=== PATIENT | female | born 1955 | race African-American/Black ===

== ENCOUNTER 2018-03-16 19:23 | Inpatient (IN) ==
[2018-03-16] MEDS ORDERED: DUONEB (A & A) INH ONE (19:37)
[2018-03-16] MEDS ORDERED: SOLU-MEDROL IV ONE (19:45)
[2018-03-16 20:20] LABS: BASO# 0.17 X1000 (0.0-0.2); BASO% 1.4 % (0.0-0.8); EOS# 0.09 X1000 (0.0-0.7); EOS% 0.8 % (0.0-10.0); HEMATOCRIT 46.8 % (37.0-47.0); HEMOGLOBIN 15.5 g/dL (12.0-16.0); IMM GRAN# 0.09 X1000 (0.0-0.04); IMM GRAN% 0.8 % (0.0-0.5); LYMPH# 2.59 X1000 (1.2-3.4); LYMPH% 21.9 % (20.5-51.1); MCH 29.1 PG (27-31); MCHC 33.1 g/dL (33-37); MONO# 1.17 X1000 (0.11-0.59); MONO% 9.9 % (1.7-9.3); MPV 11.2 FL (7.4-10.4); NEUT# 7.73 X1000 (1.4-6.5); NEUT% 65.2 % (42.2-75.2); PLT 263 X1000 (130-400); RBC 5.32 XMIL (4.2-5.4); RDW 13.9 % (11.5-14.5); WBC 11.84 X1000 (4.8-10.8)
[2018-03-16 20:42] LABS: ALKALINE PHOSPHATASE 84 U/L (32-104); BUN 10 mg/dL (8-22); CALCIUM 8.9 mg/dL (8.8-10.2); CREATININE 0.5 mg/dL (0.5-0.9); ESTIMATED GFR > 60; GLUCOSE 154 mg/dL (70-104); GOT 40 U/L (10-30); GPT 30 U/L (10-36); TCO2 30 mmol/L (25-35); TOTAL PROTEIN 7.9 g/dL (6.3-8.3)
[2018-03-16] MEDS ORDERED: ALBUTEROL NEB INH ONE (20:43)
--- NOTE | 2018-03-16 20:48 | Diag Imaging Result Doc PS360 ---
CHEST-PORTABLE - 03/16/2018 INDICATION: sob COMPARISON: None FINDINGS: There are some ill-defined infiltrates in the lung bases, nonspecific. Heart size and pulmonary vascularity is normal. No pneumothorax or pleural effusion. IMPRESSION: Mild, hazy infiltrate or atelectasis in both lung bases. Electronically signed by Chirag Shi 03/16/2018 8:45 PM
[2018-03-16 20:57] LABS: ALBUMIN 3.3 g/dL (3.5-5.0); CHLORIDE 93 mmol/L (98-107); POTASSIUM 4.1 mmol/L (3.5-5.1); SODIUM 137 mmol/L (136-145)
--- NOTE | 2018-03-16 21:02 | PROVIDER DOCUMENTATION ---
This chart was entered by Malou Tierney Scribe, acting as scribe for Fredi Serrato MD. HPI-Respiratory General - General Chief Complaint: Shortness of Breath Stated Complaint: SOB/COUGH Time Seen by Provider: 03/16/18 19:45 Source: patient Allergies/Adverse Reactions: Patient Allergies Allergy/AdvReac Type Severity Reaction Status Date / Time No Known Allergies Allergy Verified 03/16/18 19:44 Home Medications: Home Medication List Medication Instructions Recorded Confirmed Last Taken Type Unobtainable [Home Meds 03/16/18 03/16/18 Unknown History Unobtainable] - History of Present Illness-Resp Nature of Presenting Problem: Pt has COPD and has been having SOB for the last week. She does not take meds at home because they are too expensive. Pt is a current everyday smoker. She reports having been coughing up yellow phlegm. hx of HTN and high lipids. Hx of double knee replacement Quality of Pain: reports: other (SOB) Severity in ED: reports: severe Onset/Duration: reports: 1 week ago Timing: reports: still present Context: reports: other (COPD) Exposure: reports: other (COPD) Cough Quality/Degree: reports: moderate, productive cough (yellow phlegm) Episode Frequency: chronic episodes Current Respiratory Medication Therapy: Initiated none Modifying Factors: improves with: coughing Associated Symptoms: reports: cough, short of breath, wheezing. denies: chest pain/soreness, dizziness, fever/chills, flu-like symptoms, headache Similar Symptoms Previously?: Yes Recently seen or treated by another doctor?: No Review of Systems - Adult - REVIEW OF SYSTEMS - ADULT Constitutional: denies: chills, fever Eyes: reports: no symptoms reported Ears, Nose, Mouth & Throat: reports: no symptoms reported Cardiovascular: reports: no symptoms reported. denies: chest pain, edema Respiratory: reports: chronic cough, cough, shortness of breath, wheezing Gastrointestinal: denies: abdominal pain Genitourinary: reports: no symptoms reported Musculoskeletal: reports: no symptoms reported Integumentary: reports: no symptoms reported Neurological: reports: no symptoms reported. denies: dizziness/vertigo, headache/migraines Psychiatric: reports: no symptoms reported Endocrine: reports: no symptoms reported Hematologic/Lymphatic: reports: no symptoms reported Allergic/Immunologic: reports: no symptoms reported All Other Systems: Reviewed and Negative Past History - Adult - PAST MEDICAL HISTORY-ADULT Review of Records: reports: Old Records Reviewed, Nursing Assessment Review, Medications Reviewed, Social history reviewed & non-contributory. - SOCIAL HISTORY Smoking: cigarettes, less than 1 pack/day Substance Use: none/never Alcohol Use Frequency: never Living Situation: family Physical Exam-General - CONSTITUTIONAL General Appearance: moderate distress (SOB) - HEAD, EARS, NOSE, MOUTH & THROAT HENMT: TMs normal - NECK Neck: non-tender, full range of motion, supple - RESPIRATORY Respiratory: chest non-tender, respiratory distress, wheezing (tight w/ bilat wheezes) - CARDIOVASCULAR Cardiovascular: no edema, no gallop, tachycardia (107) - GASTROINTESTINAL (ABDOMEN) Abdominal Exam: normal bowel sounds, non tender, soft - LYMPHATIC Lymphatic: no adenopathy - MUSCULOSKELETAL Back Exam: normal inspection, no CVA tenderness, no vertebral tenderness Extremity: normal range of motion, non-tender, normal gait - SKIN Integumentary: normal color, normal turgor, warm/dry - NEUROLOGIC Neurologic: grossly normal - PSYCHIATRIC Psych/Mental Status: normal mood/affect, normal thought content, normal thought process, oriented x 3 Progress - PLAN OF CARE/RESULTS Progress/Plan/Lab Results: Vital Signs - 8 hr 03/16/18 19:25 03/16/18 20:00 03/16/18 20:07 Temperature 98.5 F Pulse Rate 107 H 109 H 108 H Respiratory Rate 24 22 28 H Blood Pressure 138/97 121/87 O2 Sat by Pulse Oximetry 65 L 94 L 95 03/16/18 20:50 Temperature Pulse Rate 91 H Respiratory Rate 18 Blood Pressure O2 Sat by Pulse Oximetry Laboratory Results - last 24 hr 03/16/18 03/16/18 03/16/18 19:50 19:50 19:50 WBC 11.84 H RBC 5.32 Hgb 15.5 Hct 46.8 MCV 88.0 MCH 29.1 MCHC 33.1 RDW Std Deviation 13.9 Plt Count 263 MPV 11.2 H Immature Gran % (Auto) 0.8 H Neut % (Auto) 65.2 Lymph % (Auto) 21.9 Charles % (Auto) 9.9 H Eos % (Auto) 0.8 Baso % (Auto) 1.4 H Immature Gran # (Auto) 0.09 H Neut # (Auto) 7.73 H Lymph # (Auto) 2.59 Charles # (Auto) 1.17 H Eos # (Auto) 0.09 Baso # (Auto) 0.17 D-Dimer, Quantitative Specimen Type Sample Site pH pCO2 pO2 HCO3 Base Excess Oxyhemoglobin ABG O2 Sat (Calculated) ABG O2 Saturation ABG Carboxyhemoglobin ABG Methemoglobin John Test A-a O2 Difference Total Hemoglobin Lactate Liter Flow Blood Gas Modality FiO2 % Sodium Potassium Chloride Carbon Dioxide Anion Gap BUN Creatinine Estimated GFR/1.73 m2 BUN/Creatinine Ratio Glucose Calculated Osmolality Calcium Total Bilirubin AST ALT Alkaline Phosphatase Creatine Kinase 300 H Creatine Kinase Index 1.3 CK-MB (CK-2) 3.84 Troponin T < 0.010 Egl-G-Tbttlkalchc Pept Total Protein Albumin Globulin Albumin/Globulin Ratio 03/16/18 03/16/18 03/16/18 19:50 19:50 19:50 WBC RBC Hgb Hct MCV MCH MCHC RDW Std Deviation Plt Count MPV Immature Gran % (Auto) Neut % (Auto) Lymph % (Auto) Charles % (Auto) Eos % (Auto) Baso % (Auto) Immature Gran # (Auto) Neut # (Auto) Lymph # (Auto) Charles # (Auto) Eos # (Auto) Baso # (Auto) D-Dimer, Quantitative 1.07 H Specimen Type Sample Site pH pCO2 pO2 HCO3 Base Excess Oxyhemoglobin ABG O2 Sat (Calculated) ABG O2 Saturation ABG Carboxyhemoglobin ABG Methemoglobin John Test A-a O2 Difference Total Hemoglobin Lactate Liter Flow Blood Gas Modality FiO2 % Sodium 137 Potassium 4.1 Chloride 93 L Carbon Dioxide 30 Anion Gap 14 BUN 10 Creatinine 0.5 Estimated GFR/1.73 m2 > 60 BUN/Creatinine Ratio 20 Glucose 154 H Calculated Osmolality 276 Calcium 8.9 Total Bilirubin 0.40 AST 40 H ALT 30 Alkaline Phosphatase 84 Creatine Kinase Creatine Kinase Index CK-MB (CK-2) Troponin T Poq-O-Mkijkxaefly Pept 4054 H Total Protein 7.9 Albumin 3.3 L Globulin 5.0 Albumin/Globulin Ratio 1.0 03/16/18 20:47 WBC RBC Hgb Hct MCV MCH MCHC RDW Std Deviation Plt Count MPV Immature Gran % (Auto) Neut % (Auto) Lymph % (Auto) Charles % (Auto) Eos % (Auto) Baso % (Auto) Immature Gran # (Auto) Neut # (Auto) Lymph # (Auto) Charles # (Auto) Eos # (Auto) Baso # (Auto) D-Dimer, Quantitative Specimen Type ARTERIAL Sample Site L RADIAL pH 7.40 pCO2 66 H* pO2 65 HCO3 34.3 H Base Excess 12.5 H Oxyhemoglobin 86.6 L* ABG O2 Sat (Calculated) 19.2 ABG O2 Saturation 92.3 L ABG Carboxyhemoglobin 4.90 H ABG Methemoglobin 1.3 John Test YES A-a O2 Difference 109.0 Total Hemoglobin 15.8 Lactate 1.00 Liter Flow 4.0 Blood Gas Modality CANNULA FiO2 % 36.0 Sodium Potassium Chloride Carbon Dioxide Anion Gap BUN Creatinine Estimated GFR/1.73 m2 BUN/Creatinine Ratio Glucose Calculated Osmolality Calcium Total Bilirubin AST ALT Alkaline Phosphatase Creatine Kinase Creatine Kinase Index CK-MB (CK-2) Troponin T Ogk-P-Wirlqhlkuqd Pept Total Protein Albumin Globulin Albumin/Globulin Ratio Orders Category Date Time Status Cardiac Monitoring DIRECTED Care 03/16/18 19:46 Active Oxygen Therapy- ED Nursing DIRECTED Care 03/16/18 19:35 Active CHEST-PORTABLE [RAD] Stat Exams 03/16/18 19:45 Completed ABG [RESP] Routine Lab 03/16/18 20:47 Completed BLOOD CULTURE [BLDCUL] Stat Lab 03/16/18 19:50 Results BNP [PRO B-NATRIURETIC PEPTIDE] Stat Lab 03/16/18 19:50 Completed CBC WITH ELECTRONIC DIFF [HEME] Stat Lab 03/16/18 19:50 Completed CK PROFILE [SP CHEM] Stat Lab 03/16/18 19:50 Completed CMP [COMPREHENSIVE METABOLIC PANEL] [CHEM] Stat Lab 03/16/18 19:50 Completed D-DIMER [COAG] Stat Lab 03/16/18 19:50 Completed TROPONIN T Stat Lab 03/16/18 19:50 Completed Albuterol 2.5MG/Ipratrop 0.5MG [Duoneb (A & A)] Med 03/16/18 19:37 Discontinued 3 ml INH NOW ONE Albuterol [Albuterol Neb] Med 03/16/18 20:43 Discontinued 5 mg INH NOW ONE CefTRIAXONE [Rocephin] 1 gm Med 03/16/18 21:16 Active 0.9% Sodium Chloride Inj [Ns] 50 ml IV NOW Methylprednisolone Sod Succ [Solu-Medrol] Med 03/16/18 19:45 Discontinued 125 mg IV NOW ONE Aerosol Treatments Routine Oth 03/16/18 20:44 Completed Aerosol Treatments Stat Oth 03/16/18 19:35 Completed Aerosol Treatments Stat Oth 03/16/18 20:44 Completed Asthma/COPD (Adult) Stat Oth 03/16/18 19:35 Ordered CP/SOB/Palp >45 yrs of Age Stat Oth 03/16/18 19:35 Ordered EKG [EKG] Stat Ther 03/16/18 19:47 Draft Result Diagrams: 03/16/18 19:50 03/16/18 19:50 - REASSESSMENT Reassessment #1 Time Reassessed: 20:44 - EKG 1 Time of EKG reading by physician:: 20:01 EKG Read and Signed by:: Fredi Serrato EKG Interpretation (*Must complete 3 of following elements*): Normal Rate: 108 Rhythm: sinus tachycardia [place]: normal [place] Interval: normal ST Wave: normal Comments: otherwise normal ECG - CONSULTS/PCP/HOSPITALIST Notification #1 *Consult/PCP/Hospitalist*: Dr. Stacy, hospitalist Time Discussed: 21:40 Consult Disposition: Admit Departure - Departure Date of Disposition Decision: 03/16/18 Time of Disposition Decision: 21:43 DIAGNOSIS: COPD with exacerbation, Hypoxemia Disposition: ADMITTED INPATIENT 09 Certified Medical Emergency: Emergent Condition: Stable Referrals and Follow-Ups: Christine Langley MD [Primary Care Provider] - - Critical Care Note This patient required my direct & personal management of CC.: No Total Time (mins): 121 Critical Care Statement: This patient required my direct personal management to treat or rule out processes, the absence of which, could potentiallly result in sudden, clinically significant life or limb threatening deterioration. Attestation - Physician/ DARNELL Attestation Patient care was provided by Advanced Practice Provider:: No The physician spent face to face time with patient:: Yes Advanced Practice Provider documentation review:: Supervising physician onsite and consulted in the evaluation and care of this patient. The physician did have a face to face encounter with the patient. This chart was documented by the indicated scribe, (Malou Tierney Scribe) and accurately reflects the services I performed and decisions made by me, Fredi Serrato MD, as attested by the provider's signature.
[2018-03-16 21:13] LABS: BE 12.5 mmoll (-3.0-3.0); BLOOD TYPE ARTERIAL; HCO3-(ACT) 34.3 mmoll (20.0-26.0); METHB 1.3 % (0.0-1.5); O2(CT) 19.2 mL/dL (15.0-23.0); PO2(98.6) 65 mmHg (60-100); SAMPLE BLOOD; SAO2 92.3 % (95.0-100.0); THB 15.8 g/dL (11.5-17.4)
[2018-03-16 21:16] LABS: ALLEN TEST YES; MODALITY CANNULA; O2HB 86.6 % (95.0-99.0); PCO2(98.6) 66 mmHg (35-45)
[2018-03-16] MEDS ORDERED: ROCEPHIN 1 GM in NS 50 ML IV ONE (21:16)
[2018-03-16 21:17] LABS: AGAP 14; CK INDEX 1.3 (0.0-2.5); CK-MB 3.84 ng/mL (0.0-5.0); COSMO 276
--- NOTE | 2018-03-16 21:20 | EKG Report ---
Test Performed on : 03/16/2018 8:01:40 PM Test Reason : pain Blood Pressure : / mmHG Vent. Rate : 108 BPM Atrial Rate : 108 BPM P-R Int : 124 ms QRS Dur : 074 ms QT Int : 348 ms P-R-T Axes : 072 054 037 degrees QTc Int : 466 ms Sinus tachycardia. Otherwise normal ECG No previous ECGs available Unconfirmed Result
[2018-03-16] MEDS ORDERED: ZOFRAN IV PRN (21:45)
[2018-03-16] MEDS: DUONEB (A & A) INH SCH (23:48)
[2018-03-17] MEDS: DUONEB (A & A) INH SCH ×6 (03:05→23:04)
[2018-03-17] MEDS: SOLU-MEDROL IV SCH ×3 (03:14→16:15)
[2018-03-17] MEDS ORDERED: DUONEB (A & A) INH PRN (09:51)
[2018-03-17] MEDS: ZITHROMAX PO SCH (11:15)
[2018-03-17] MEDS: LOVENOX SUBQ SCH (16:16)
[2018-03-17] MEDS ORDERED: NICODERM PATCH TD PRN (17:15)
--- NOTE | 2018-03-17 17:55 | Diag Imaging Result Doc PS360 ---
CT ANGIOGRM PULMONARY ARTERIES - 03/17/2018 INDICATION: elevated ddimer, hypoxemia TECHNIQUE: Axial CT images were obtained after administering intravenous contrast. Coronal MIP images were generated. COMPARISON: Chest x-ray 03/16/2018 FINDINGS: There is no pulmonary embolism. Heart size is normal with no pericardial effusion. Upper abdominal images are unremarkable. No adenopathy. There is advanced COPD. There are ill-defined infiltrates in the lingula and right middle lobe. There is also advanced bronchitis in the lower lobes, and some subsegmental bronchial mucus plugging. There are moderate degenerative changes of the spine. No acute or suspicious bony lesion. IMPRESSION: Negative for pulmonary embolism. Bilateral pneumonia in the lingula and right middle lobe. Bronchitis with mucus plugging of segmental airways in the lower lobes. This exam was performed using automated exposure control, adjustment of mA or kV according to patient size, and/or use of iterative reconstruction technique Electronically signed by Chirag Shi 03/17/2018 5:52 PM
--- NOTE | 2018-03-17 18:37 | HISTORY AND PHYSICAL ---
CHIEF COMPLAINT: Cough, shortness of breath for 7 days despite home medications. HISTORY OF PRESENT ILLNESS: This is a 62-year-old female with a history of COPD, asthma and hypertension, as well as continued tobacco use. She presents to the emergency room complaining of a week of increasing shortness of breath. She has had a productive cough with yellow phlegm. She does continue to smoke half a pack to a pack a day. She presented with a room air saturation of 65% per vital signs. She was placed on oxygen 3L and it looks like sat came up to 89 to 93. Her chest x-ray in the emergency room revealed hazy infiltrate or atelectasis in both lung bases for which she was given Rocephin. She was found to have an elevated D-dimer 1.07. She is being admitted for further evaluation and treatment. PAST MEDICAL HISTORY: COPD, asthma, hypertension. PAST SURGICAL HISTORY: Bilateral knee replacements. SOCIAL HISTORY: She smokes about a half a pack a day. She denies alcohol or illicit drug use. ALLERGIES: No known drug allergies. HOME MEDICATIONS: A list will be obtained by the nursing staff and restarted as is appropriate. REVIEW OF SYSTEMS: Discussed with the patient with pertinent positives stated in the HPI. She denied any syncope, dizziness, any chest pain, palpitations, any recent weight loss or weight gain, fever, any nausea, vomiting, diarrhea, constipation, black or bloody vomitus or stools, hematuria, dysuria, frequency, urgency. PHYSICAL EXAMINATION: GENERAL: This is a 62-year-old female who is sitting up in the bed in no distress. VITAL SIGNS: Blood pressure has 128/74 with a heart rate of 88, respirations are 18, temperature is 98.6 degrees oral with O2 saturations of 92% on 6 L nasal cannula. EYES: Pupils are equal, round, react to light. EOMs are intact. Sclerae are anicteric. HEENT: Head is normocephalic, atraumatic. Mucous membranes are moist. NECK: Supple with trachea midline. CARDIOVASCULAR: Regular rate and rhythm, is tachycardic. S1 and S2 are appreciated. She has bilateral lower extremity edema. PULMONARY: Wheezes scattered throughout. Chest rises and falls symmetrically with respiration. GASTROINTESTINAL: Abdomen is soft, nontender, nondistended with bowel sounds in all 4 quadrants. NEUROLOGIC: She is alert and oriented. SKIN: Warm and dry. LABS: WBC is 11.8 with hemoglobin 15.5, hematocrit 46.8, platelets of 263,000. D-dimer is 1.07. Sodium 137, potassium 4.1, BUN 10, creatinine 0.5 with a glucose of 154. Troponin is negative. ProBNP is 4054. Blood cultures are pending. Chest x-ray revealed mild hazy infiltrate or atelectasis in both lungs. ASSESSMENT AND PLAN: 1. Chronic obstructive pulmonary disease with acute exacerbation. 2. Acute hypoxic respiratory failure. 3. Bilateral lower lobe atelectasis. 4. Hypertension. 5. Elevated D-dimer. 6. Continued tobacco use and abuse. The patient has been admitted to the medical/surgical floor and placed on telemetry with supplemental oxygen. We will continue DuoNeb q.4 hours and q.2 p.r.n. and steroids to taper. We will continue Rocephin for antibiotic coverage and we will add Zithromax. Further antibiotics will be culture driven. We will order a CTA pulmonary as well as a bilateral lower extremity venous Doppler. We will give Lovenox a mg per kg q.12 hours and depending on results of Dopplers and CTA we will know how to further proceed with anticoagulation. Will restart her Norvasc. The patient states that she cannot afford her home medications, therefore, she is not taking them. We will attempt to identify her medications for her COPD. For GI prophylaxis we will add Prilosec and we will do a nicotine patch as needed for craving. Further treatments pending hospital course. Dictated by MARIA EUGENIA Srinivasan for Jeffrey Stacy MD This chart was documented by, MARIA EUGENIA Srinivasan and accurately reflects the services performed, treatment plan and medical decisions as attested by the providers signature Jeffrey Stacy MD. cc: MARIA EUGENIA Srinivasan MD
--- NOTE | 2018-03-17 20:04 | HISTORY AND PHYSICAL ---
HISTORY AND PHYSICAL ADDENDUM: Patient seen and examined by myself. Full note dictated and discussed with nurse practitioner. The patient notes that she has been trying to decrease smoking. She is actually down to 5 cigarettes a day. She presented to the hospital with increased cough, congestion, shortness of breath for the past week. Continues to worsen. We will admit her to the hospital, treat in usual fashion for COPD exacerbation and we will follow. Please see full note. cc: Jeffrey Stacy MD
[2018-03-17] MEDS: ROCEPHIN 1 GM in NS 50 ML IV SCH (21:44)
[2018-03-17] MEDS: LIPITOR PO SCH (21:45)
[2018-03-18] MEDS: SOLU-MEDROL IV SCH ×3 (00:28→16:07)
[2018-03-18] MEDS: LOVENOX SUBQ SCH ×2 (03:21→16:07)
[2018-03-18] MEDS: DUONEB (A & A) INH SCH ×6 (03:23→22:58)
[2018-03-18] MEDS: PRILOSEC PO SCH (06:28)
[2018-03-18 06:56] LABS: HEMATOCRIT 40.6 % (37.0-47.0); HEMOGLOBIN 12.6 g/dL (12.0-16.0); MCH 28.6 PG (27-31); MCV 92.1 FL (81-99); MPV 11.6 FL (7.4-10.4); RBC 4.41 XMIL (4.2-5.4); RDW 14.1 % (11.5-14.5); WBC 16.83 X1000 (4.8-10.8)
[2018-03-18 07:10] LABS: AGAP 8; BUN 10 mg/dL (8-22); CALCIUM 8.7 mg/dL (8.8-10.2); CHLORIDE 100 mmol/L (98-107); COSMO 284; CREATININE 0.5 mg/dL (0.5-0.9); ESTIMATED GFR > 60; GLUCOSE 135 mg/dL (70-104); POTASSIUM 5.1 mmol/L (3.5-5.1); SODIUM 142 mmol/L (136-145); TCO2 35 mmol/L (25-35)
[2018-03-18] MEDS ORDERED: PNEUMOVAX 23 IM ONE (09:00)
[2018-03-18] MEDS: NORVASC PO SCH (10:42)
[2018-03-18] MEDS: ZITHROMAX PO SCH (10:42)
--- NOTE | 2018-03-18 11:34 | Extremity Venous Study ---
EXAM: Venous U/S Bilateral Legs - 03/17/2018 HISTORY: elevated ddimer, dyspnea, hypoxemia TECHNIQUE: Bilateral lower extremity Doppler venous ultrasound COMPARISON: None. FINDINGS: The deep veins of the bilateral lower extremities demonstrate flow and compressibility. There are no filling defects identified. IMPRESSION: No evidence of deep venous thrombosis in either lower extremity. Electronically signed by Chris Lopez 03/18/2018 11:32 AM
--- NOTE | 2018-03-18 19:33 | PROGRESS NOTE ---
DATE: 03/18/2018 SUBJECTIVE: The patient has no focal complaints. OBJECTIVE: Vital Signs: Blood pressure is 135/79, heart rate 103, respiratory rate 20, temperature 98.4, 98% on 4 L. Cardiovascular: Regular rate and rhythm. Pulmonary: Bilateral breath sounds. Clear to auscultation. Gastrointestinal: Soft, nontender, nondistended. Bowel sounds are positive. LABORATORY DATA: White count up to 16, hemoglobin and hematocrit 12 and 40, platelets 310,000. Basic was normal. PROBLEM LIST: 1. Acute chronic obstructive pulmonary disease exacerbation. Will continue breathing treatments and follow. 2. Acute hypoxic respiratory failure. She seems to be improved. 3. Elevated D-dimer. She is complaining about shots. I thought she was on DVT prophylaxis, but she is on this dose of Lovenox until we have ruled out PE and that has been accomplished. I am just going to stop the Lovenox and we will just do sequentials tomorrow. Anticipate discharge soon, hopefully in the next 24 hours. She is still requiring a lot of O2, though, if this is accurate at 6 L. 4. Bibasilar pneumonia. We will continue empiric antibiotics and follow. DISPOSITION: Hopefully home in the next 1 to 2 days pending her clinical status. cc: Tony Constantino MD
--- NOTE | 2018-03-18 22:20 | EKG Report ---
Test Performed on : 03/18/2018 9:37:34 PM Test Reason : HR HIGH Blood Pressure : / mmHG Vent. Rate : 126 BPM Atrial Rate : 126 BPM P-R Int : 092 ms QRS Dur : 072 ms QT Int : 310 ms P-R-T Axes : 078 046 058 degrees QTc Int : 448 ms Sinus tachycardia. with short [place] Otherwise normal ECG When compared with ECG of 16-MAR-2018 20:01, (Unconfirmed) [place] interval has decreased Unconfirmed Result
[2018-03-18] MEDS: ROCEPHIN 1 GM in NS 50 ML IV SCH (22:26)
[2018-03-18] MEDS: LIPITOR PO SCH (22:26)
[2018-03-18] MEDS ORDERED: SOLU-MEDROL IV ONE (22:26)
[2018-03-19] MEDS ORDERED: SOLU-MEDROL IV SCH
[2018-03-19] MEDS: DUONEB (A & A) INH SCH ×6 (02:58→22:45)
[2018-03-19] MEDS: SOLU-MEDROL IV SCH ×3 (04:03→22:07)
[2018-03-19] MEDS: PRILOSEC PO SCH (06:14)
[2018-03-19 07:23] LABS: BASO# 0.01 X1000 (0.0-0.2); EOS# 0.01 X1000 (0.0-0.7); HEMATOCRIT 29.3 % (37.0-47.0); HEMOGLOBIN 9.1 g/dL (12.0-16.0); IMM GRAN# 0.15 X1000 (0.0-0.04); IMM GRAN% 0.6 % (0.0-0.5); LYMPH# 2.07 X1000 (1.2-3.4); LYMPH% 8.1 % (20.5-51.1); MCH 28.3 PG (27-31); MCHC 31.1 g/dL (33-37); MCV 91.3 FL (81-99); MONO# 1.58 X1000 (0.11-0.59); MONO% 6.2 % (1.7-9.3); MPV 11.4 FL (7.4-10.4); NEUT# 21.64 X1000 (1.4-6.5); NEUT% 85.1 % (42.2-75.2); PLT 365 X1000 (130-400); RBC 3.21 XMIL (4.2-5.4); RDW 13.7 % (11.5-14.5); WBC 25.46 X1000 (4.8-10.8)
[2018-03-19 07:34] LABS: CALCIUM 8.2 mg/dL (8.8-10.2); CREATININE 1.8 mg/dL (0.5-0.9); POTASSIUM 5.9 mmol/L (3.5-5.1)
[2018-03-19 08:13] LABS: ANISOCYTOSIS 1+; LYMPHS 7 % (21-51); MONO 4 % (1-9); SEGS 89 % (42-75)
[2018-03-19] MEDS: ZITHROMAX PO SCH (11:36)
[2018-03-19] MEDS: NORVASC PO SCH (11:36)
[2018-03-19] MEDS ORDERED: NS 1,000 ML IV ONE (18:35)
--- NOTE | 2018-03-19 20:29 | PROGRESS NOTE ---
DATE: 03/19/2018 SUBJECTIVE: Patient has no major complaints. Overnight though she did have some more breathing difficulty I think we gave her a little bit more steroid and we put her on Optiflow respiratory and she has improved. She says she is breathing a lot better following day. OBJECTIVE: Blood pressure 130/68, heart rate of 102, respiratory rate of 20, temperature of 98.2 degrees.Cardiovascular: Regular rate and rhythm. Pulmonary: Bilateral breath sounds. Clear to auscultation. GI: Soft, nontender, nondistended. Bowel sounds were positive. LABORATORY DATA: White count jumped up to 25, hemoglobin and hematocrit 9 and 29, platelets 365,000, her hemoglobin and hematocrit has been stable though I do not know that is odd, potassium is also jumped up to 5.9 and a creatinine of 1.8 without any treatment so I am kind of wondering labs are completely accurate. She is not really on anything that would affect her kidney function but in any case. 1. Acute respiratory failure. We will continue to wean off her Optiflow high-flow oxygen. 2. Acute chronic obstructive pulmonary disease exacerbation. We will continue breathing treatments. I am going to wean her steroids, empiric antibiotics. 3. Elevated D-dimer. She has ruled out for pulmonary embolism. We need to work on subtracting her O2 requirement. 4. Pneumonia. Will continue empiric antibiotics and follow. 5. Possible acute kidney injury. We will continue gentle hydration, repeat labs tomorrow. DISPOSITION: I anticipate she will need home oxygen, hopefully can get home in the next 1 to 2 days pending her clinical status. cc: Tony Constantino MD
[2018-03-19] MEDS: ROCEPHIN 1 GM in NS 50 ML IV SCH (22:06)
[2018-03-19] MEDS: LIPITOR PO SCH (22:07)
[2018-03-20] MEDS: DUONEB (A & A) INH SCH ×6 (03:33→23:36)
[2018-03-20] MEDS: SOLU-MEDROL IV SCH ×3 (05:29→20:15)
[2018-03-20] MEDS: PRILOSEC PO SCH (06:05)
[2018-03-20 08:13] LABS: BASO# 0.03 X1000 (0.0-0.2); BASO% 0.1 % (0.0-0.8); EOS# 0.01 X1000 (0.0-0.7); HEMATOCRIT 23.2 % (37.0-47.0); HEMOGLOBIN 7.3 g/dL (12.0-16.0); IMM GRAN# 0.38 X1000 (0.0-0.04); IMM GRAN% 1.8 % (0.0-0.5); LYMPH# 2.06 X1000 (1.2-3.4); LYMPH% 9.8 % (20.5-51.1); MCH 28.5 PG (27-31); MCHC 31.5 g/dL (33-37); MCV 90.6 FL (81-99); MONO# 1.71 X1000 (0.11-0.59); MONO% 8.1 % (1.7-9.3); MPV 10.9 FL (7.4-10.4); NEUT# 16.89 X1000 (1.4-6.5); NEUT% 80.2 % (42.2-75.2); PLT 289 X1000 (130-400); RBC 2.56 XMIL (4.2-5.4); RDW 13.8 % (11.5-14.5); WBC 21.08 X1000 (4.8-10.8)
[2018-03-20 08:26] LABS: POTASSIUM 5.2 mmol/L (3.5-5.1)
[2018-03-20 09:06] LABS: ANISOCYTOSIS 1+; LYMPHS 12 % (21-51); MONO 8 % (1-9); SEGS 79 % (42-75)
[2018-03-20] MEDS: ZITHROMAX PO SCH (10:32)
[2018-03-20] MEDS: NORVASC PO SCH (10:32)
[2018-03-20] MEDS ORDERED: MUCOMYST 20% INH ONE (14:02)
[2018-03-20] MEDS: MAXIPIME 2 GM in NS 100 ML IV SCH (14:39)
[2018-03-20] MEDS ORDERED: LASIX IV SCH (15:00)
--- NOTE | 2018-03-20 15:51 | PROGRESS NOTE ---
DATE: 03/20/2018 SUBJECTIVE: Patient has no focal complaints. Pt is still on high flow O2 and cannot wean effectively yet. OBJECTIVE: Blood pressure is 112/72, heart rate of 97, respiratory rate 22, temperature 97.8 degrees, satting 93% on 45%.Cardiovascular: Regular rate and rhythm. Pulmonary : Bilateral breath sounds. Clear to auscultation. GI: Soft, nontender, nondistended. Bowel sounds are positive. LABORATORY DATA: White count 20, hemoglobin and hematocrit 7 and 23, platelets 289. Potassium stableBUN and creatinine 32 and 1. PROBLEM LIST: 1. Acute respiratory failure. Opti-Flow with high-flow oxygen. Acute chronic obstructive pulmonary disease exacerbation. We will continue treatments and follow closely. White count is still very high, which is likely related to steroids, but I am going to repeat his chest x- ray. 2. Elevated D-dimer. We will continue to rule out 3. Pneumonia. Will continue empiric antibiotics. The patient is still requiring high-flow oxygen though, although wheezing is better. Blood pressure as described. Laboratory data: White count is 21,000, hemoglobin and hematocrit is H H 7 and 23, platelets 289. Potassium 5.2, creatinine of 1. PROBLEM LIST: 1. Acute respiratory failure. We are still trying to wean Optiflow. Maybe transfusion with improvement in her hemoglobin and hematocrit will help with her oxygenation. 2. Acute obstructive pulmonary disease exacerbation. We will continue treatment. I am not going to wean anything further at this point. 3. Pneumonia. I am going to increase her. She is on azithromycin already, although orally. I am going to give her cefepime instead of her usual medications, and we will repeat her chest x- ray and see how she does. 4. Acute kidney injury. She had a bump in her creatinine and then it went back down. It is very unusual. I am not sure what caused this unless it may have been related to the contrast because she did get a pulmonary embolism study on admission. We will also add Mucomyst to help with the mucous plugging. She is on continuous DuoNebs. I will probably add some Advair and see how she does, but again she is still requiring high-flow oxygen, and she will likely need oxygen to go home with I anticipate. cc: MD JUAQUIN Pyle
--- NOTE | 2018-03-20 15:53 | Diag Imaging Result Doc PS360 ---
EXAM: CHEST-PORTABLE - 03/20/2018 HISTORY: hypoxia TECHNIQUE: Portable chest COMPARISON: 03/16/2018 FINDINGS: Inspiration is more shallow compared to prior, although this may be exaggerated by somewhat lordotic projection. There are ill-defined infiltrates and/or atelectasis at the bilateral lung bases, which appear increased from prior. The upper lungs remain essentially clear. There is no pleural effusion or pneumothorax identified. IMPRESSION: Somewhat shallow inspiration, with ill-defined infiltrates and/or atelectasis at the bilateral lung bases. Electronically signed by Chris Lopez 03/20/2018 3:51 PM
[2018-03-20] MEDS: MUCOMYST 20% INH SCH (19:43)
[2018-03-20] MEDS: ADVAIR 250/50 DISKUS INH SCH (19:44)
[2018-03-20] MEDS: LIPITOR PO SCH (20:15)
[2018-03-21] MEDS: MAXIPIME 2 GM in NS 100 ML IV SCH ×2 (02:46→15:09)
[2018-03-21] MEDS: DUONEB (A & A) INH SCH ×6 (03:13→22:55)
[2018-03-21] MEDS: SOLU-MEDROL IV SCH ×2 (03:49→11:06)
[2018-03-21] MEDS: PRILOSEC PO SCH (06:36)
[2018-03-21] MEDS: MUCOMYST 20% INH SCH ×2 (07:35→19:28)
[2018-03-21] MEDS: ADVAIR 250/50 DISKUS INH SCH ×2 (07:35→19:27)
[2018-03-21 08:30] LABS: AGAP 10; BUN 20 mg/dL (8-22); CALCIUM 8.1 mg/dL (8.8-10.2); CHLORIDE 98 mmol/L (98-107); COSMO 278; CREATININE 0.6 mg/dL (0.5-0.9); ESTIMATED GFR > 60; GLUCOSE 102 mg/dL (70-104); POTASSIUM 5.3 mmol/L (3.5-5.1); SODIUM 138 mmol/L (136-145); TCO2 30 mmol/L (25-35)
[2018-03-21 08:36] LABS: BASO# 0.03 X1000 (0.0-0.2); BASO% 0.2 % (0.0-0.8); HEMATOCRIT 26.1 % (37.0-47.0); HEMOGLOBIN 8.3 g/dL (12.0-16.0); IMM GRAN# 0.28 X1000 (0.0-0.04); IMM GRAN% 1.6 % (0.0-0.5); LYMPH# 1.61 X1000 (1.2-3.4); LYMPH% 9.4 % (20.5-51.1); MCH 28.7 PG (27-31); MCHC 31.8 g/dL (33-37); MCV 90.3 FL (81-99); MONO# 1.12 X1000 (0.11-0.59); MONO% 6.5 % (1.7-9.3); MPV 11.2 FL (7.4-10.4); NEUT# 14.07 X1000 (1.4-6.5); NEUT% 82.3 % (42.2-75.2); PLT 271 X1000 (130-400); RBC 2.89 XMIL (4.2-5.4); RDW 13.5 % (11.5-14.5); WBC 17.11 X1000 (4.8-10.8)
[2018-03-21] MEDS: NORVASC PO SCH (11:05)
[2018-03-21] MEDS: ZITHROMAX PO SCH (11:05)
[2018-03-21] MEDS: LIPITOR PO SCH (20:58)
[2018-03-21] MEDS: MIRALAX PO SCH (20:58)
[2018-03-21] MEDS ORDERED: MUCOMYST 20% PO SCH (21:00)
--- NOTE | 2018-03-21 22:36 | PROGRESS NOTE ---
DATE: 03/21/2018 SUBJECTIVE: This patient today is feeling much better. She is still using the high-flow oxygen. Oxygen saturation has been in the low 90s. She has no wheezing. No pain. Her hemoglobin dropped yesterday, and she was transfused, and the hemoglobin increased from 7.3 to 8.3. Still pending the occult blood in the stool. She has been constipated, and I will add MiraLAX to her medications. OBJECTIVE: Vital Signs: Temperature 97.9 degrees, pulse 94, respiratory rate 20, blood pressure 102/50, oxygen saturation 92 on high-flow oxygen. HEENT: Head normocephalic, no trauma. PERRLA. Neck: Supple. No JVD. No masses. Central trachea. Chest: She has decreased breath sounds globally with prolonged expiratory phase. No wheezing today. Abdomen: Soft, protuberant. Nontender, nondistended. No hepatosplenomegaly. Extremities: No edema. No clubbing. No cyanosis. Neurological: The patient is alert and oriented x3. No focal deficits. LABORATORY: WBC 17.1, hemoglobin 8.3, hematocrit 26.1, platelets 271,000. Sodium 138, potassium 5.3, chloride 98, bicarbonate 30, BUN 20, creatinine 0.6, glucose 102, calcium 8.1. ASSESSMENT AND PLAN: 1. Hypoxemic and hypercapnic respiratory failure. We will continue with high-flow oxygen with Optiflow, but I will try to wean this down to nasal cannula if we can. I will decrease also the amount of steroids since she is feeling much better. 2. Acute chronic obstructive pulmonary disease exacerbation. I will decrease the dose of the steroids, I will continue with pulmonary toilet, and I will continue with oxygen supplementation. 3. Pneumonia. Continue with the same management. I do believe she is getting better. 4. Acute kidney injury, resolved. BUN and creatinine are normal today. 5. Hypertension, stable. We will continue with amlodipine once a day. cc: Valentino Goncalves MD
[2018-03-22] MEDS: MAXIPIME 2 GM in NS 100 ML IV SCH ×2 (02:42→13:54)
[2018-03-22] MEDS: DUONEB (A & A) INH SCH ×6 (03:18→22:37)
[2018-03-22] MEDS: PRILOSEC PO SCH (06:20)
[2018-03-22] MEDS: ADVAIR 250/50 DISKUS INH SCH ×2 (07:25→19:16)
[2018-03-22] MEDS: MUCOMYST 20% INH SCH ×2 (07:25→19:16)
[2018-03-22 08:12] LABS: AGAP 7; BUN 16 mg/dL (8-22); CALCIUM 8.1 mg/dL (8.8-10.2); CHLORIDE 98 mmol/L (98-107); COSMO 272; CREATININE 0.6 mg/dL (0.5-0.9); ESTIMATED GFR > 60; GLUCOSE 82 mg/dL (70-104); MAGNESIUM 2.4 mg/dL (1.5-2.7); SODIUM 136 mmol/L (136-145); TCO2 31 mmol/L (25-35)
[2018-03-22 08:20] LABS: BASO# 0.01 X1000 (0.0-0.2); BASO% 0.1 % (0.0-0.8); EOS# 0.01 X1000 (0.0-0.7); EOS% 0.1 % (0.0-10.0); HEMATOCRIT 25.4 % (37.0-47.0); HEMOGLOBIN 7.9 g/dL (12.0-16.0); IMM GRAN# 0.32 X1000 (0.0-0.04); IMM GRAN% 1.7 % (0.0-0.5); LYMPH# 2.14 X1000 (1.2-3.4); LYMPH% 11.3 % (20.5-51.1); MCH 28.9 PG (27-31); MCHC 31.1 g/dL (33-37); MONO% 9.5 % (1.7-9.3); MPV 10.7 FL (7.4-10.4); NEUT# 14.74 X1000 (1.4-6.5); NEUT% 77.3 % (42.2-75.2); PLT 289 X1000 (130-400); RBC 2.73 XMIL (4.2-5.4); RDW 14.1 % (11.5-14.5); WBC 19.02 X1000 (4.8-10.8)
[2018-03-22] MEDS ORDERED: SOLU-MEDROL IV SCH (09:00)
[2018-03-22] MEDS: NORVASC PO SCH (10:30)
[2018-03-22] MEDS: MIRALAX PO SCH ×2 (10:30→21:59)
[2018-03-22] MEDS: ZITHROMAX PO SCH (10:30)
--- NOTE | 2018-03-22 16:57 | PROGRESS NOTE ---
DATE: 03/22/2018 SUBJECTIVE: This patient is feeling better, she is still using high-flow oxygen. Her oxygen saturation without oxygen is about 80. She has no wheezing, so I will stop the IV steroids and I will put her on prednisone p.o.. Her hemoglobin dropped a couple days ago and she was transfused. Hemoglobin yesterday was 8.3 and today 7.9. We will continue to monitor. She has been constipated, I put her on. MiraLAX twice a day. OBJECTIVE: Vital Signs: Temperature 97.9 degrees, pulse 85, respiratory rate 18, blood pressure 114/64, oxygen saturation 93 on a Venturi mask. HEENT: Head normocephalic. No trauma. PERRLA. Neck: Supple. No JVD. No masses. Central trachea. Chest: Decreased breath sounds globally with prolonged expiratory phase. No wheezing. Abdomen: Soft, protuberant, nontender, nondistended. No hepatosplenomegaly. Extremities: No edema. No clubbing. No cyanosis. Neurological: The patient is alert and oriented x3. No focal deficits. LABORATORY: WBC 19.0, hemoglobin 7.9, hematocrit 25.4, platelets 289,000. Sodium 136, potassium 5, chloride 98, bicarbonate 31, BUN 16, creatinine 0.6, glucose 82, calcium 8.1, magnesium 2.4. ASSESSMENT AND PLAN: 1. Hypoxemic and hypercapnic respiratory failure. We will continue with oxygen supplementation. We will try to wean this patient down to nasal cannula if we can. I will decrease the amount of steroids and actually I will switch it from IV to p.o. She is feeling better. She has no wheezing. 2. Normocytic anemia. Her hemoglobin dropped to 7.3, a couple days ago. She received a unit of PRBC and increased to 8.3, today 7.9. We will continue to monitor this patient closely. She is not getting blood thinners. She has been placed on EDY hoses and sequential compression devices. 3. Acute on chronic exacerbation. I think this is getting better. She is not wheezing. She is breathing more comfortably. We will continue with pulmonary toilet, oxygen supplementation, breathing treatment and antibiotics. 4. Pneumonia continue with same management. Continue antibiotics. 5. Acute kidney injury. Resolved. 6. Hypertension, stable. Continue with amlodipine once a day. 7. Constipation. Continue with MiraLAX twice a day. cc: Valentino Goncalves MD
[2018-03-22] MEDS: LIPITOR PO SCH (21:59)
[2018-03-23] MEDS: MAXIPIME 2 GM in NS 100 ML IV SCH ×2 (02:40→15:31)
[2018-03-23] MEDS: DUONEB (A & A) INH SCH ×4 (03:48→16:30)
[2018-03-23] MEDS: PRILOSEC PO SCH (06:20)
[2018-03-23 08:15] LABS: BASO# 0.02 X1000 (0.0-0.2); BASO% 0.1 % (0.0-0.8); EOS# 0.02 X1000 (0.0-0.7); EOS% 0.1 % (0.0-10.0); HEMATOCRIT 27.4 % (37.0-47.0); HEMOGLOBIN 8.4 g/dL (12.0-16.0); IMM GRAN# 0.27 X1000 (0.0-0.04); IMM GRAN% 1.5 % (0.0-0.5); LYMPH# 2.96 X1000 (1.2-3.4); LYMPH% 16.3 % (20.5-51.1); MCH 28.9 PG (27-31); MCHC 30.7 g/dL (33-37); MCV 94.2 FL (81-99); MONO# 1.82 X1000 (0.11-0.59); MPV 10.5 FL (7.4-10.4); NEUT# 13.03 X1000 (1.4-6.5); PLT 327 X1000 (130-400); RBC 2.91 XMIL (4.2-5.4); RDW 14.4 % (11.5-14.5); WBC 18.12 X1000 (4.8-10.8)
[2018-03-23 08:30] LABS: AGAP 9; ALKALINE PHOSPHATASE 51 U/L (32-104); BUN 13 mg/dL (8-22); CALCIUM 8.2 mg/dL (8.8-10.2); CHLORIDE 98 mmol/L (98-107); COSMO 276; CREATININE 0.5 mg/dL (0.5-0.9); ESTIMATED GFR > 60; GLUCOSE 70 mg/dL (70-104); GOT 33 U/L (10-30); GPT 61 U/L (10-36); SODIUM 139 mmol/L (136-145); TCO2 32 mmol/L (25-35); TOTAL PROTEIN 5.6 g/dL (6.3-8.3)
[2018-03-23] MEDS: MUCOMYST 20% INH SCH (08:45)
[2018-03-23] MEDS: ADVAIR 250/50 DISKUS INH SCH (08:45)
[2018-03-23] MEDS: MIRALAX PO SCH (08:47)
[2018-03-23] MEDS: ZITHROMAX PO SCH (08:47)
[2018-03-23] MEDS: NORVASC PO SCH (08:47)
[2018-03-23] MEDS ORDERED: PREDNISONE PO SCH (09:00)
[2018-03-23 15:19] VITALS: BP 117/63
--- NOTE | 2018-03-24 05:25 | DISCHARGE SUMMARY ---
ADMISSION DATE: 03/16/2018 DISCHARGE DATE: 03/23/2018 PRIMARY CARE PHYSICIAN: Dr. Langley. ADMISSION DIAGNOSES: 1. Acute exacerbation of chronic obstructive pulmonary disease. 2. Acute hypoxic respiratory failure. 3. Bilateral lower lobe atelectasis. 4. Hypertension. 5. Elevated D-dimer. 6. Continued tobacco use and abuse. DISCHARGE DIAGNOSES: 1. Hypoxemic and hypercapnic respiratory failure, improved. 2. Normocytic anemia. 3. An acute on chronic exacerbation of chronic obstructive pulmonary disease. 4. Pneumonia. 5. Acute kidney injury, resolved. 6. Hypertension. 7. Constipation. SUMMARY OF FINDINGS: This is a 62-year-old female who presented with increased shortness of breath for the past week with a productive cough with yellow phlegm. Continued to smoke a half a pack to a pack of cigarettes a day. Room air saturation was 65% on room air. Placed on 3 L via nasal cannula, came up to 89 to 93. Chest x-ray revealed some hazy infiltrates and/or atelectasis of both lung bases so she was also found to have an elevated D-dimer at 1.07. We did a pulmonary arteriogram that was negative for pulmonary emboli. It did show bilateral pneumonia in the lingula and right middle lobe bronchitis with mucus plugging of segmental airways in the lower lobes. She was placed on IV antibiotics breathing treatments, O2. She was placed on prednisone 20 mg p.o. daily. She has improved, but she is going to require home O2 at 3 L via nasal cannula, but it is felt that we can safely discharge her home today. She will also need to follow up with Dr. Valentin, pulmonology, in [address] Langley in 1 to 2 weeks calling the office for an appointment. DISCHARGE MEDICATIONS: Norvasc 5 mg p.o. daily, atorvastatin 10 p.o. at bedtime, prescription for Advair 250/50 one puff inhalation b.i.d. #1 inhaler with 2 refills, prescription for MiraLAX 17 g p.o. b.i.d., prescription for Ventolin inhaler 2 puff inhalation q.6 hours p.r.n., Atrovent inhaler 2 puffs 4 times daily, Medrol Dosepak to take as directed. INSTRUCTIONS: All discharge instructions were reviewed with the patient and she verbalized understanding. TIME: 35 minute discharge. Dictated by MARIA EUGENIA Loomis for Valentino Goncalves MD cc: MARIA EUGENIA Loomis MD Mamoun I. Najjar, MD Dr. Reddy
== END 2018-03-23 18:15 | disposition home or self-care (01) | DRG 193 ==
LOC: P.ED 19:23 → P.MEDSURG 22:37 → SUATTDRO 22:37
PROVIDERS: ATTEND Internal Medicine
CPT/HCPCS: 36430; 71010; 71045; 71275; 80048; 80053; 82550; 82553; 82805; 82948; 83735; 83880; 84484; 85025; 85027; 85379; 86850; 86900; 86901; 86920; 87040; 93005; 93970; 94640; 94761; 94799; 96374; 96375; 97162; 97530; 99285; A9270; J0692; J0696; J1650; J2405; J2920; J2930; J7030; J7506; J7512; P9016; Q9967; XXXXX